=== PATIENT | female | born 1945 | race Caucasian/White ===

== ENCOUNTER → 2017-01-07 | Outpatient (CLI) | payer MEDICARE ==
[~2017-01-07] MED LIST: ADULT LOW DOSE81 MG PO; ALBUTEROL2 PUFFS/17 IN; ALBUTEROL2.5 MG/NEB IN; DOXYCYCLINE HY100 M3 PO; INSULIN GL100 UNITS/ SC; LEVAQUIN250 M1 PO; LEVOTHYROXIN0.025 MG PO; NOVOLOG FLEX100 U/ML SC; [UNRECOGNIZED DRUG - OTHER] IN
[2017-01-07 12:26] LABS: LYMPH # 1.6 K/mm3 (0.7-4.5); LYMPH % 25.2 % (10-50.0)
[2017-01-07 12:31] LABS: HEMOGLOBIN 12.9 g/dL (12.2-16.2)
[2017-01-07 14:15] LABS: BUN 14 mg/dL (7-18)
[2017-01-07 14:17] LABS: GFR (ESTIMATED) 49 ML/MIN (59-)
[2017-01-08 12:37] LABS: Microalbumin, Urine 158.4 ug/mL (Not Estab.)
== END ==
LOC: LAB 12:05
PROVIDERS: Nurse Practitioner Family
DX: E11.42 Type 2 diabetes mellitus with diabetic polyneuropathy (principal); I73.9 Peripheral vascular disease, unspecified

== ENCOUNTER → 2017-01-16 | Outpatient (CLI) | payer MEDICARE, MEDICAID ==
--- NOTE | 2017-01-17 10:15 | RADIOLOGY REPORT PS360 ---
BONE DENSITOMETRY(HIP:LT SPINE COMPARISON: None HISTORY: Patient is postmenopausal TECHNIQUE: DEXA scanning lumbar spine and hips FINDINGS: The areas BMD lumbar spine L1-L4 is 1.038 g/sq cm and the T score is -1.2. The total BMD left hip is 0.757 g centimeters squared and the T score is -2.0. The left femoral neck is 0.825 g centimeters squared and the T score is -1.5. IMPRESSION: Findings in the osteopenia range for the lumbar spine and hips, consider follow-up study in 2 years
== END ==
LOC: RAD 09:50
DX: Z12.31 Encounter for screening mammogram for malignant neoplasm of breast (principal); Z78.0 Asymptomatic menopausal state; Z13.820 Encounter for screening for osteoporosis
CPT/HCPCS: G0202